=== PATIENT | female | born 1945 | race African-American/Black ===

== ENCOUNTER 2018-03-03 09:56 | Outpatient (CLI) | payer MEDICARE ==
[2018-03-03 11:04] LABS: Blood Urea Nitrogen 14 mg/dL (7-17)
--- NOTE | 2018-03-03 13:38 | Cat Scan Report ---
FINAL REPORT EXAM: CT ABDOMEN PELVIS WO/W CON HISTORY: Hematuria, unspecified TECHNIQUE: CT of the abdomen and pelvis without and with IV contrast. Coronal and sagittal reconstructed imaging provided. PRIORS: None currently available. FINDINGS: ABDOMEN: Heterogeneous low attenuation to the liver may be related to fatty infiltration or hepatocellular disease. Several low-attenuation subcentimeter lesions in liver are too small to accurately characterize. No suspicious enhancement is noted. Gallbladder, stomach, spleen, pancreas, and adrenals are unremarkable. Kidneys: Unremarkable. No hydronephrosis. No nephroureteral stones. Visualized portions of the uterus are unremarkable. Right pelviectasis noted. There is no abdominal aortic aneurysm. No dissection. Mild atherosclerotic disease noted. IVC is unremarkable. There is no periaortic or retroperitoneal adenopathy or mass. [id number] stool. No wall thickening or inflammatory changes. Terminal ilium is unremarkable. Appendix is normal. Small bowel loops are unremarkable. No obstructive pattern. No free air. No free fluid. Mesentery is unremarkable. Fat-containing umbilical hernia without strangulation. PELVIS: Limited CT images of the uterus are unremarkable. No wall thickening. No abnormal enhancement. No stone. Bilateral ureteral jets visualized. There is no pelvic mass or adenopathy. Inguinal regions are unremarkable. Bones: No suspicious osseous lesions on this limited examination of the skeleton. Metastatic disease better evaluated with bone scan. IMPRESSION: Heterogeneous low attenuation to the liver. Suspect fatty infiltration or hepatocellular disease. Several subcentimeter low-density lesions in the liver. Too small to accurately characterize. Suspect cysts and hemangiomas.
== END 2018-03-03 09:57 | disposition home or self-care (01) ==
LOC: CT 09:56
PROVIDERS: ATTEND Family Medicine
DX: R31.9 Hematuria, unspecified (principal)
CPT/HCPCS: 36415; 74178; 82565; 84520; Q9967

== ENCOUNTER 2018-06-23 13:06 | Outpatient (CLI) | payer MEDICARE ==
--- NOTE | 2018-06-23 14:52 | Cat Scan Report ---
CT ABDOMEN AND PELVIS WITHOUT CONTRAST INDICATION: Hematuria. COMPARISON: 03/03/2018 FINDINGS: Noncontrast abdomen and pelvis CT performed. LUNG BASES: Stable borderline cardiomegaly and few coronary calcifications. Slight nonspecific distal esophageal wall prominence/thickening, not excluded for gastroesophageal reflux and/or hiatal hernia, amongst others. ABDOMEN: Please note that sensitivity to detect small visceral lesions is limited due to the absence of intravenous or oral contrast. Motion artifact also limits exam. Liver though grossly stable with few small hypodensities as measuring approximately 1 cm in the right hepatic lobe posteriorly on axial image 26, series 2 while few other subcentimeter may be noted in the right lobe. No CT evidence of fatty hepatic infiltration at this time. Spleen, suboptimally distended gallbladder, pancreas, adrenals, nonaneurysmal abdominal aorta with few atherosclerotic calcifications, IVC and kidneys also grossly within normal limits. Few perisplenic varices/collaterals/splenorenal shunt possible. Nonopacified GI tract evaluation limited, though grossly nonobstructive. Mild colonic stool. No ascites or definite significant adenopathy. PELVIS: Non-opacified urinary bladder, rectosigmoid and uterus/adnexa grossly unremarkable. No free fluid or significant adenopathy. Bilateral gluteal subcutaneous injection granulomas again noted. Demineralized bones. Bilateral SI joint vacuum phenomena. CONCLUSION: No definite acute CT abnormality or explanation for patient's hematuria on this unenhanced exam, limited due to motion artifact, with few other incidental findings, as above. Please correlate. Thank you for the opportunity to participate in this patient's care.
== END 2018-06-23 13:07 | disposition home or self-care (01) ==
LOC: CT 13:06
PROVIDERS: ATTEND Urology
DX: R31.29 Other microscopic hematuria (principal)
CPT/HCPCS: 74176